=== PATIENT | male | born 1960 | race Caucasian/White ===

== ENCOUNTER 2020-03-25 11:48 | Emergency (ER) | payer SELFPAY ==
[~2020-03-25] VITALS: Ht 172 cm; Wt 58.0 kg
[2020-03-25 12:20] VITALS: BP 159/103
[2020-03-25] MEDS ORDERED: CEPH-507 PO (12:39)
--- NOTE | 2020-03-25 12:40 | ED Upper Extremity ---
General Chief Complaint: Upper Extremity Stated Complaint: STAFF INFECTION Nursing Triage Note: PATIENT STATES NOTICED LEFT ELBOW NOTICED SWELLING 24 HOURS AGO. Nursing Sepsis Screen: No Definite Risk Source: patient Exam Limitations: no limitations History of Present Illness Date Seen by Provider: Mar 25, 2020 Time Seen by Provider: 12:34 Initial Comments Patient is a 59-year-old male who presents to the emergency room with a chief complaint of left elbow swelling and red rash. Patient states the rash started a couple of days ago. 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 He states the elbow does not hurt but he has noticed that its been swelling. He denies fevers or chills but states that the swelling has extended into his forearm and a little bit up his upper arm. No difficulties with range of motion. Patient denies any other complaints of illness or injury. All other review of systems reviewed and negative except as stated. Onset: last week Severity: mild Pain/Injury Location: left elbow, left forearm Allergies and Home Medications Allergies Coded Allergies: No Known Drug Allergies (Unverified , 11/18/11) Patient Home Medication List Home Medication List Reviewed: Yes Review of Systems Constitutional: see HPI EENTM: no symptoms reported Respiratory: cough (Chronic) Cardiovascular: no symptoms reported Gastrointestinal: no symptoms reported Genitourinary: no symptoms reported Musculoskeletal: no symptoms reported Skin: change in color, other (Swelling over left elbow) All Other Systems Reviewed Negative Unless Noted: Yes Past Vtobtzc-Jrqykv-Ryjgmj Hx Patient Social History Recent Foreign Travel: No Contact w/Someone Who Travel: No Recent Infectious Disease Expo: No Physical Exam Vital Signs Vital Signs - First Documented 03/25/20 12:20 Temp 37.0 Pulse 120 Resp 20 B/P (MAP) 159/103 (121) Pulse Ox 97 O2 Delivery Room Air Capillary Refill : Less Than 3 Seconds Height, Weight, BMI Height: '" Weight: lbs. oz. kg; 19.00 BMI Method:Stated General Appearance: WD/WN, no apparent distress Cardiovascular: regular rate, rhythm Respiratory: lungs clear, normal breath sounds, no respiratory distress Gastrointestinal: soft Elbow/Forearm: normal ROM, Left, swelling (Swelling over the olecranon bursa with some erythema that extends over the bursa and into the dorsum of the fo rearm; no crepitance noted no tenderness to palpation) Wrist: Yes normal inspection, Yes non-tender, Yes no evidence of injury, Yes normal ROM Hand: normal inspection, non-tender, no evidence of injury, normal ROM Neurologic/Psychiatric: alert, normal mood/affect, oriented x 3 Skin: normal color, warm/dry Progress/Results/Core Measures Results/Orders Vital Signs/I&O 03/25/20 12:20 Temp 37.0 Pulse 120 Resp 20 B/P (MAP) 159/103 (121) Pulse Ox 97 O2 Delivery Room Air Blood Pressure Mean: 121 Departure Impression Primary Impression: Olecranon bursitis of left elbow Disposition: HOME, SELF-CARE Condition: Stable Departure-Patient Inst. Decision time for Depature: 12:37 Referrals: FRANCES PORTILLO MD (PCP/Family) Primary Care Physician Patient Instructions: Olecranon Bursitis Add. Discharge Instructions: Take the antibiotics I have prescribed you 3 times a day for the next week. You can use Tylenol or gupi-tzc-tqduwnq ibuprofen as needed for discomfort. If the redness continues to expand after 24 to 48 hours on the antibiotics, if you develop fever, or any other emergent concerning symptoms please return to the emergency room for reevaluation. Scripts Cephalexin (Keflex) 500 Mg Capsule 500 MG PO TID for 7 Days, #21 CAP Prov: MICHOACANO MENA MD 03/25/20 MICHOACANO MENA MD Mar 25, 2020 12:40
== END 2020-03-25 12:51 | disposition home or self-care (01) ==
LOC: EDUNIT# 11:48 → ER 11:50
DX: M70.22 Olecranon bursitis, left elbow (principal); X58.XXXA Exposure to other specified factors, initial encounter
CPT/HCPCS: 99282

== ENCOUNTER 2022-06-02 08:30 | Emergency (ER) | payer SELFPAY ==
[~2022-06-02] VITALS: Ht 172.7 cm; Wt 63.5 kg
[~2022-06-02 08:30] MED LIST: CEPH-507 PO
--- NOTE | 2022-06-02 09:01 | ED Neurological Problem ---
General Chief Complaint: Head/Cervical Problems Stated Complaint: HEADACHES DIZZINESS Source: patient Exam Limitations: no limitations History of Present Illness Date Seen by Provider: Jun 02, 2022 Time Seen by Provider: 08:42 Initial Comments Patient is a 62-year-old male who presents to the emergency room today with a chief complaint of occipital headache and feelings of dizziness. Patient states the symptoms have been going on for about 3 weeks. He states last night he was at the grocery store and it was at its worst. He was having to hold onto the shopping cart to keep from falling down. 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 He states when he looks up he has the worst feelings of dizziness. The dizziness and headaches can occur anytime of day and occasionally he feels his heartbeat in his ears. Occasionally it feels like he is "underwater". He takes 800 mg of ibuprofen sometimes 2-3 times daily for his headaches. Minimal relief of symptoms. He did have a fall about a month ago and "blew my back out". He has been going to chiropractor and having deep tissue massages. He states his back pain is a chronic problem however. He takes no daily medications, does not routinely go to the doctor. Cannot recall the last time he had any type of general medical exam. History of smoking for approximately "50 years". He states normally 2 packs a day but has been able to wean himself down to 1 pack a day recently. He did visit urgent care approximately 1 week ago. He states they told him he was dehydrated, he has been drinking 1 L of water daily and states that has helped his dizziness "a little". He states they did not do much of exam and exam, they did not look in his ears or watch him walk. Currently mild headache. No nausea. No other complaints of illness. Timing/Duration: other (3 weeks) Severity: moderate Associated Symptoms: trouble walking, weakness (feels a little weak "no energy") Allergies and Home Medications Allergies Coded Allergies: No Known Drug Allergies (Unverified , 11/18/11) Patient Home Medication List Home Medication List Reviewed: Yes Cephalexin (Keflex) 500 Mg Capsule, 500 MG PO TID Prescribed by: MICHOACANO MENA on 03/25/20 1239 Review of Systems Review of Systems Constitutional: see HPI, malaise Eyes: No Symptoms Reported Ears, Nose, Mouth, Throat: see HPI Respiratory: no symptoms reported Cardiovascular: no symptoms reported Gastrointestinal: no symptoms reported Genitourinary: no symptoms reported Musculoskeletal: back pain (chronic) Skin: no symptoms reported Psychiatric/Neurological: Headache, Other (balance and coordination issues) All Other Systems Reviewed Negative Unless Noted: Yes Past Bkaxqpz-Mbchnr-Bxmwas Hx Patient Social History Tobacco Use?: Yes Tobacco type used: Cigarettes Smoking Status: Current Everyday Smoker Use of E-Cig and/or Vaping dev: No Substance use?: Yes Substance type: Marijuana Substance frequency: Daily Alcohol Use?: Yes Alcohol Frequency: Couple times a week Pt feels they are or have been: No Immunizations Up To Date Influenza Vaccine Up-to-Date: No; Not Current First/Initial COVID19 Vaccinat: NONE Past Medical History Surgery/Hospitalization HX: FAMILY HX OF STROKE Physical Exam Vital Signs Vital Signs - First Documented 06/02/22 08:36 Temp 36.4 Pulse 104 Resp 18 B/P (MAP) 164/90 (114) Pulse Ox 98 O2 Delivery Room Air Capillary Refill : Height, Weight, BMI Height: '" Weight: lbs. oz. kg; 19.00 BMI Method:Stated General Appearance: no apparent distress, thin HEENT: PERRL/EOMI, other (palate appears to elevate assymmetrically; tongue is midline; TM's occluded by cerumen bilaterally) Neck: non-tender, full range of motion, supple, normal inspection Respiratory: expiration (exp wheezes bilaterally (mild)) Cardiovascular: regular rate, rhythm Peripheral Pulses: 2+ Radial Pulses (R), 2+ Radial Pulses (L) Gastrointestinal: normal bowel sounds, non tender, soft Extremities: normal range of motion, non-tender, normal inspection, no pedal edema, no calf tenderness, normal capillary refill Neurologic/Psychiatric: alert, normal mood/affect, oriented x 3, abnormal gait (slightly wide based initially, but patient coreects; able to do 3 steps heel to toe; able to stand on tip toes) Crainal Nerves: normal hearing, normal speech, PERRL; No abnormal eye position, No abnormal gag reflex, No abnormal pupil position, No facial asymmetry, No facial droop, No facial paresthesias, No facial weakness, No gaze palsy, No tongue deviation to R, No tongue deviation to L Coordination/Gait: other (past points with both hands briefly but corrects, no persistent abnormality) Motor/Sensory: no sensory deficit, no pronator drift Skin: normal color, warm/dry, other (clubbing to fingertips) Progress/Results/Core Measures Results/Orders Lab Results Laboratory Tests Test 06/02/22 09:00 Range/Units White Blood Count 8.2 4.3-11.0 10^3/uL Red Blood Count 4.34 4.30-5.52 10^6/uL Hemoglobin 14.3 13.3-17.7 g/dL Hematocrit 42 40-54 % Mean Corpuscular Volume 96 80-99 fL Mean Corpuscular Hemoglobin 33 25-34 pg Mean Corpuscular Hemoglobin Concent 34 32-36 g/dL Red Cell Distribution Width 12.7 10.0-14.5 % Platelet Count 270 130-400 10^3/uL Mean Platelet Volume 9.6 9.0-12.2 fL Immature Granulocyte % (Auto) 1 % Neutrophils (%) (Auto) 53 42-75 % Lymphocytes (%) (Auto) 30 12-44 % Monocytes (%) (Auto) 14 H 0-12 % Eosinophils (%) (Auto) 2 0-10 % Basophils (%) (Auto) 0 0-10 % Neutrophils # (Auto) 4.4 1.8-7.8 10^3/uL Lymphocytes # (Auto) 2.4 1.0-4.0 10^3/uL Monocytes # (Auto) 1.2 H 0.0-1.0 10^3/uL Eosinophils # (Auto) 0.2 0.0-0.3 10^3/uL Basophils # (Auto) 0.0 0.0-0.1 10^3/uL Immature Granulocyte # (Auto) 0.1 0.0-0.1 10^3/uL Prothrombin Time 12.2 12.2-14.7 SEC INR Comment 0.9 0.8-1.4 Activated Partial Thromboplast Time 29 24-35 SEC Sodium Level 139 135-145 MMOL/L Potassium Level 4.0 3.6-5.0 MMOL/L Chloride Level 101 98-107 MMOL/L Carbon Dioxide Level 26 21-32 MMOL/L Anion Gap 12 5-14 MMOL/L Blood Urea Nitrogen 12 7-18 MG/DL Creatinine 0.77 0.60-1.30 MG/DL Estimat Glomerular Filtration Rate 102 BUN/Creatinine Ratio 16 Glucose Level 111 H 70-105 MG/DL Calcium Level 9.7 8.5-10.1 MG/DL Corrected Calcium 9.6 8.5-10.1 MG/DL Total Bilirubin 0.3 0.1-1.0 MG/DL Aspartate Amino Transf (AST/SGOT) 16 5-34 U/L Alanine Aminotransferase (ALT/SGPT) 17 0-55 U/L Alkaline Phosphatase 73 40-136 U/L Total Protein 7.1 6.4-8.2 GM/DL Albumin 4.1 3.2-4.5 GM/DL My Orders Orders - MICHOACANO MENA MD Ed Iv/Invasive Line Start (06/02/22 09:01) Cbc With Automated Diff (06/02/22 09:01) Comprehensive Metabolic Panel (06/02/22 09:01) Protime With Inr (06/02/22 09:01) Partial Thromboplastin Time (06/02/22 09:01) Chest 1 View, Ap/Pa Only (06/02/22 09:01) Ns Iv 1000 Ml (Sodium Chloride 0.9%) (06/02/22 09:45) Ct Head W Wo (06/02/22 09:38) Iohexol Injection (Omnipaque 350 Mg/Ml 1 (06/02/22 10:00) Received Contrast (Hold Metformin- Contr (06/02/22 10:00) Ns (Ivpb) (Sodium Chloride 0.9% Ivpb Bag (06/02/22 10:00) Medications Given in ED Vital Signs/I&O 06/02/22 06/02/22 06/02/22 08:36 08:36 12:40 Temp 36.4 Pulse 104 78 Resp 18 18 B/P (MAP) 164/90 (114) 137/87 Pulse Ox 98 97 O2 Delivery Room Air Room Air Progress Progress Note : Time: 10:59 Progress Note Patient seen and evaluated by me. Evaluation today includes physical exam, CBC, Chem-12, coags, chest x-ray and CT head with and without contrast. Pertinent physical exam findings, well-developed well-nourished 62-year-old male in no acute distress, thin. Slightly dry oral mucosa, HEENT exam otherwise negative. Heart is regular, lungs are clear, no abdominal tenderness. Moves all extremities equally. Neurologic testing shows slightly ataxic gait/wide-based that the patient corrects. He is able to walk 3 steps only on heel-to-toe walking. Negative pronator drift, pylubh-hv-cfbm is pertinent for past-pointing bilaterally but the patient corrects this. No nystagmus, extraocular muscles are intact. Palate actually looks to elevate asymmetrically. He has no obvious cranial nerve deficits. Motor and sensory strength are intact throughout. Differential diagnosis cerebellar stroke/mass. After work-up was obtained, labs reviewed, CBC normal, Chem-12 normal, coags no rmal. Radiologist read chest x-ray and noted some right hilar fullness cannot exclude mass. Otherwise hyperinflated consistent with COPD changes. CT head with and without contrast showed right cerebellar mass measuring 1.5 cm with surrounding vasogenic edema and shift of about 5 mm. He had 2 other masses noted laterally in the cerebellum on both the right and left. Findings were communicated with the patient. I expressed to him the need for further work-up and treatment of the mass with swelling as it is limiting his activities of daily living. I spoke with Dr. Tommy Parsons at [facility], neurosurgery who it was agreeable that the patient needed to come over for further evaluation management and treatment. We will speak with Dr. Magdaleno, the hospitalist on-call for acceptance. Diagnostic Imaging Diagonstic Imaging: Xray Plain Films/CT/US/NM/MRI: chest Comments [facility] [place], [place] NAME: GERA WAGNER [facility] REC#: [id number] PT STATUS: REG ER : 1960 PHYSICIAN: MICHOACANO MENA MD ADMIT DATE: 06/02/22/ER Draft Date of Exam:06/02/22 CHEST 1 VIEW, AP/PA ONLY INDICATION: Headache and dizziness. FINDINGS: The diaphragms are flattened and there are prominent interstitial markings suggesting underlying COPD. There is prominence of the right hilum. This may reflect a prominent pulmonary artery but given the apparent COPD risk factors consider CT of the chest. There is no superimposed pneumonia. There is no effusion or pneumothorax. There is no suspicious osseous abnormality. IMPRESSION: 1. Background features of apparent COPD with pulmonary hyperinflation and diaphragmatic flattening. 2. Asymmetric prominence of the right hilum. While this may reflect a prominent pulmonary artery, consider CT examination to exclude adenopathy or a juxta hilar mass. Dictated on workstation # [id number] Dict: 06/02/22 0925 Trans: 06/02/22929 CV [id number] Interpreted by: WILLIS CONTRERAS MD Electronically signed by: Hanh Imaging: CT Comments [facility] [place] [place] NAME: GERA WAGNER [facility] REC#: [id number] PT STATUS: REG ER : 1960 PHYSICIAN: MICHOACANO MENA MD ADMIT DATE: 06/02/22/ER Draft Date of Exam:06/02/22 CT HEAD W WO PROCEDURE: CT head with and without contrast. TECHNIQUE: Multiple contiguous axial images were obtained through the brain before and after the administration of intravenous contrast. Auto Exposure Controls were utilized during the CT exam to meet ALARA standards for radiation dose reduction. INDICATION: Headache. Unsteady gait. Balance and coordination problems. COMPARISON: None. FINDINGS: Hyperattenuating mass in the right cerebellum measures approximately 1.4 x 1.5 cm and enhances on the postcontrast imaging. There are also enhancing masses more laterally in the cerebellum, measuring up to 0.5 cm on the right and 0.3 cm on the left. Vasogenic edema in the right cerebellum results in midline shift of approximately 0.5 cm and mass effect upon the 4th ventricle. No hydrocephalus. No CT evidence of a territorial infarction. No extra-axial fluid collections. Mucosal thickening in the maxillary sinuses. The mastoids are clear. Osseous structures are intact. IMPRESSION: Multiple enhancing masses in the cerebellum, the largest on the right measuring up to 1.5 cm. This results in some midline shift and mild mass effect along the 4th ventricle without hydrocephalus. Dictated on workstation # [id number] Dict: 06/02/22 1026 Trans: 06/02/22 1033 CV [id number] Interpreted by: IMAN JUNE MD Electronically signed by: Departure Impression Primary Impression: Cerebellar tumor Disposition: 02 XFER SHT-TRM HOSP Condition: Stable (ERASED) Transfer Transfer Reason: Exceeds level of care Time Spoke to Accepting Phy: 11:30 Transfer Progress Notes Discussed with Dr Tommy Parsons, Neurosurgery; Discussed with Dr Magdaleno (Hospitalist) who accepts patient as direct admit Transfer Time: 12:45 Transfer Facility: [facility] Method of Transfer: Private Vehicle Departure-Patient Inst. Referrals: FRANCES PORTILLO MD (PCP/Family) Primary Care Physician MICHOACANO MENA MD Jun 02, 2022 09:01
[2022-06-02 09:10] LABS: BASOPHILS % (AUTO) 0 % (0-10); EOSINOPHILS # (AUTO) 0.2 10^3/uL (0.0-0.3); EOSINOPHILS % (AUTO) 2 % (0-10); HEMATOCRIT 42 % (40-54); HEMOGLOBIN 14.3 g/dL (13.3-17.7); LYMPHOCYTES # (AUTO) 2.4 10^3/uL (1.0-4.0); LYMPHOCYTES % (AUTO) 30 % (12-44); MEAN CORPUSCULAR HEMOGLOBIN 33 pg (25-34); MEAN CORPUSCULAR HGB CONC 34 g/dL (32-36); MEAN CORPUSCULAR VOLUME 96 fL (80-99); MEAN PLATELET VOLUME 9.6 fL (9.0-12.2); MONOCYTES # (AUTO) 1.2 10^3/uL (0.0-1.0); MONOCYTES % (AUTO) 14 % (0-12); NEUTROPHILS # (AUTO) 4.4 10^3/uL (1.8-7.8); NEUTROPHILS % (AUTO) 53 % (42-75); PLATELET COUNT 270 10^3/uL (130-400); WHITE BLOOD COUNT 8.2 10^3/uL (4.3-11.0)
[2022-06-02 09:21] LABS: ALBUMIN 4.1 GM/DL (3.2-4.5)
[2022-06-02 09:22] LABS: CALCIUM 9.7 MG/DL (8.5-10.1)
[2022-06-02 09:23] LABS: INR 0.9 (0.8-1.4); PROTHROMBIN TIME PATIENT 12.2 SEC (12.2-14.7); TOTAL PROTEIN 7.1 GM/DL (6.4-8.2)
[2022-06-02 09:25] LABS: BILIRUBIN,TOTAL 0.3 MG/DL (0.1-1.0)
[2022-06-02 09:27] LABS: CREATININE SERUM 0.77 MG/DL (0.60-1.30)
--- NOTE | 2022-06-02 09:31 | Diagnostic Imaging Report ---
INDICATION: Headache and dizziness. FINDINGS: The diaphragms are flattened and there are prominent interstitial markings suggesting underlying COPD. There is prominence of the right hilum. This may reflect a prominent pulmonary artery but given the apparent COPD risk factors consider CT of the chest. There is no superimposed pneumonia. There is no effusion or pneumothorax. There is no suspicious osseous abnormality. IMPRESSION: 1. Background features of apparent COPD with pulmonary hyperinflation and diaphragmatic flattening. 2. Asymmetric prominence of the right hilum. While this may reflect a prominent pulmonary artery, consider CT examination to exclude adenopathy or a juxta hilar mass. Dictated by: Dictated on workstation # [id number]
[2022-06-02] MEDS ORDERED: NS IV 1000 ML 1,000 ML IV SCH (09:45)
[2022-06-02] MEDS ORDERED: IOHEXOL 350 MG/ML 100 ML (OMNIPAQUE 350) VIAL IV ONE (10:00)
[2022-06-02] MEDS ORDERED: HOLD METFORMIN - RECEIVED CONTRAST 20 ML VIAL IV SCH (10:00)
[2022-06-02] MEDS ORDERED: NS 100 ML (IVPB) BAG IV ONE (10:00)
--- NOTE | 2022-06-02 10:35 | Diagnostic Imaging Report ---
PROCEDURE: CT head with and without contrast. TECHNIQUE: Multiple contiguous axial images were obtained through the brain before and after the administration of intravenous contrast. Auto Exposure Controls were utilized during the CT exam to meet ALARA standards for radiation dose reduction. INDICATION: Headache. Unsteady gait. Balance and coordination problems. COMPARISON: None. FINDINGS: Hyperattenuating mass in the right cerebellum measures approximately 1.4 x 1.5 cm and enhances on the postcontrast imaging. There are also enhancing masses more laterally in the cerebellum, measuring up to 0.5 cm on the right and 0.3 cm on the left. Vasogenic edema in the right cerebellum results in midline shift of approximately 0.5 cm and mass effect upon the 4th ventricle. No hydrocephalus. No CT evidence of a territorial infarction. No extra-axial fluid collections. Mucosal thickening in the maxillary sinuses. The mastoids are clear. Osseous structures are intact. IMPRESSION: Multiple enhancing masses in the cerebellum, the largest on the right measuring up to 1.5 cm. This results in some midline shift and mild mass effect along the 4th ventricle without hydrocephalus. Dictated by: Dictated on workstation # [id number]
[2022-06-02 12:40] VITALS: BP 137/87
== END 2022-06-02 12:39 | disposition short-term general hospital (02) ==
LOC: EDUNIT# 08:30 → ER 08:34
DX: D49.6 Neoplasm of unspecified behavior of brain (principal); R68.2 Dry mouth, unspecified; F17.210 Nicotine dependence, cigarettes, uncomplicated; Z28.310 Unvaccinated for COVID-19
CPT/HCPCS: 36415; 70470; 71045; 80053; 85025; 85610; 85730

== ENCOUNTER 2022-11-27 21:02 | Emergency (ER) | payer SELFPAY ==
--- NOTE | 2022-11-27 21:38 | ED Trauma-Multisystem ---
General Chief Complaint: Trauma-Non Activation Stated Complaint: FALL/LEFT CERDA LAC/NOSE INJURY Nursing Triage Note: PT AMB TO ED BY POV WITH C/O FALL FROM LADDER. PT REPORTS HE WAS STANDING ON THE NEXT TO TOP WRUNG ON 6 FT LADDER WHEN HE FELL. LAC NOTED TO L LEG AND NOSE. PT REPORTS HE HIT HIS FACE ON THE LADDER , REPORTS PAIN IN NOSE. DENIES LOC. A&OX4. Source of Information: Patient History of Present Illness Date Seen by Provider: Nov 27, 2022 Time Seen by Provider: 21:25 Allergies and Home Medications Allergies Coded Allergies: No Known Drug Allergies (Unverified , 11/18/11) Patient Home Medication List Cephalexin (Keflex) 500 Mg Capsule, 500 MG PO TID Prescribed by: MICHOACANO MENA on 03/25/20 1239 Past Vlnhpgf-Uqyazh-Emdoti Hx Patient Social History Tobacco Use?: Yes Tobacco type used: Cigarettes Smoking Status: Current Everyday Smoker Use of E-Cig and/or Vaping dev: No Substance use?: Yes Substance type: Marijuana Substance frequency: Daily Alcohol Use?: Yes Alcohol Frequency: Couple times a week Pt feels they are or have been: No Immunizations Up To Date Influenza Vaccine Up-to-Date: No; Not Current First/Initial COVID19 Vaccinat: NONE Second COVID19 Vaccination Jose: NONE Third COVID19 Vaccination Date: NONE Past Medical History Surgery/Hospitalization HX: BRAIN AND LUNG CA Physical Exam Vital Signs Vital Signs - First Documented 11/27/22 21:20 Temp 36.6 Pulse 102 Resp 15 B/P (MAP) 155/99 (117) Pulse Ox 100 O2 Delivery Room Air Height, Weight, BMI Height: '" Weight: lbs. oz. kg; BMI Method:Stated Progress/Results/Core Measures Results/Orders My Orders Orders - BRI TORRES DO Dipht/Pertuss(Acell)/Tet Adult (Dipht/Pe (11/27/22 21:45) Lidocaine 1% Inj 20 Ml (Xylocaine 1% Inj (11/27/22 21:45) Wound Dressing-Ed (11/27/22 21:35) Lidocaine 1% Inj 10 Ml (Xylocaine 1% Inj (11/27/22 21:40) Amoxicillin/Clavulanate Tablet (Amoxicil (11/27/22 22:00) Vital Signs/I&O 11/27/22 21:20 Temp 36.6 Pulse 102 Resp 15 B/P (MAP) 155/99 (117) Pulse Ox 100 O2 Delivery Room Air Blood Pressure Mean: 117 Progress Progress Note : Progress Note PT ADAMANTLY REFUSES CERVICAL COLLAR, ANd REFUSES ALL XRAYS AND CT SCANS DEMANDS THAT HE JUST HAVE HIS LEG SEWN UP AND DOES NOT WANT ANYTHING ELSE DONE Departure Impression Primary Impression: FALL OFF LADDER Additional Impressions: Injury of intraoral region Closed head injury without loss of consciousness Laceration of nose Laceration of left lower leg Tejnbsgsja-skgehcjvz-sqbzntf (DPT) vaccination administered at current visit Disposition: HOME, SELF-CARE Condition: Stable Departure-Patient Inst. Decision time for Depature: 21:55 Referrals: [facility] Patient Instructions: General Trauma (DC), Head Injury in Adults (DC), Laceration Repair With [facility] ED, Tdap (Tetanus, Diphtheria, Pertussis) Vaccine CDC Vaccine Information Statement (VIS), Wound Care ED Add. Discharge Instructions: CLEAN WOUNDS TWICE A DAY WITH ANTIBACTERIAL SOAP AND WATER, APPLY ANTIBIOTIC OINTMENT TO OPEN WOUNDS OF FACE, AND FRESH DRESSING TO LEG WOUNDS TYLENOL AND MOTRIN NEEDED FOR PAIN [facility]I OUT IN 10-14 DAYS--RETURN TO ER FOR REMOVAL FOLLOW UP WITH [facility] IN 2-3 DAYS FOR WOUND CHECK RETURN TO ER IF SYMPTOMS WORSEN All discharge instructions reviewed with patient and/or family. Voiced understanding. Scripts Amoxicillin/Potassium Clav (Amox Tr-K Clv 875-125 mg Tab) 875 Mg-125 Mg Tablet 1 EACH PO BID for 15 Days, #30 TAB Prov: BRI TORRES DO 11/27/22 BRI TORRES DO Nov 27, 2022 21:38
[2022-11-27] MEDS ORDERED: LIDOCAINE 1% INJ 10 ML VIAL ONE (21:40)
[2022-11-27] MEDS ORDERED: LIDOCAINE 1% INJ 20 ML VIAL IJ ONE (21:45)
[2022-11-27] MEDS ORDERED: Tetanus/Diphtheria/Pertussis (Acell) ADULT Vaccine 0.5 ML IM ONE ×2 (21:45→22:26)
[2022-11-27] MEDS ORDERED: AMOX1TAB12 PO (21:59)
[2022-11-27] MEDS ORDERED: AMOXICILLIN/Clavulanate 875 MG TABLET PO SCH (22:00)
[2022-11-27 23:12] VITALS: BP 147/85
== END 2022-11-27 23:12 | disposition home or self-care (01) ==
LOC: EDUNIT# 21:02 → ER 21:05
DX: S09.90XA Unspecified injury of head, initial encounter (principal); S01.21XA Laceration without foreign body of nose, initial encounter; S81.812A Laceration without foreign body, left lower leg, initial encounter; S09.93XA Unspecified injury of face, initial encounter; F17.210 Nicotine dependence, cigarettes, uncomplicated; Z23 Encounter for immunization; Z28.310 Unvaccinated for COVID-19; W11.XXXA Fall on and from ladder, initial encounter
CPT/HCPCS: 12032; 90715

== ENCOUNTER 2022-12-09 11:55 | Emergency (ER) | payer MEDICAID ==
[~2022-12-09] VITALS: Ht 173 cm; Wt 59.9 kg
[~2022-12-09 11:55] MED LIST changes: +AMOX1TAB12 PO
[2022-12-09 12:03] VITALS: BP 137/86
[2022-12-20] MEDS ORDERED: DOXY100C5 PO (15:34)
[2023-01-06] MEDS ORDERED: SULF1TAB38 PO (15:14)
== END 2022-12-09 12:12 | disposition home or self-care (01) ==
LOC: EDUNIT# 11:55 → ER 11:57
DX: Z48.02 Encounter for removal of sutures (principal); Z28.310 Unvaccinated for COVID-19

== ENCOUNTER 2022-12-12 13:32 | Emergency (ER) | payer SELFPAY ==
[~2022-12-12] VITALS: Ht 170 cm; Wt 62.0 kg
[2022-12-12] MEDS ORDERED: CEPH500T PO (13:59)
--- NOTE | 2022-12-12 14:00 | ED Integumentary General ---
"General Chief Complaint: Skin/Wound Problems Stated Complaint: LT ABRAHAM LACERATION | POST SUDEEP 11/28/2022 Source: patient Exam Limitations: no limitations (MAURA IBARRA) History of Present Illness Date Seen by Provider: Dec 12, 2022 Time Seen by Provider: 13:57 Initial Comments Patient is a 62-year-old male with a history of cancer presents ED for wound dehiscence to his left lower leg. Patient states that he had sudeep removed on the . Last night a broom nicked his leg caused it to open up about a centimeter. Reports some mild bloody drainage but no pus. Denies of any specific pain. Patient denies diabetes. Denies distal numbness and tingling fever, chills. Patient is concerned that this may develop infection. Patient denies history of MRSA. (MAURA IBARRA) Allergies and Home Medications Allergies Coded Allergies: No Known Drug Allergies (Unverified , 11/18/11) Patient Home Medication List Home Medication List Reviewed: Yes (MAURA IBARRA) Amoxicillin/Potassium Clav (Amox Tr-K Clv 875-125 mg Tab) 875 Mg-125 Mg Tablet, 1 EACH PO BID Prescribed by: BRI TORRES on 11/27/22 2159 Cephalexin (Keflex) 500 Mg Capsule, 500 MG PO TID Prescribed by: MICHOACANO MENA on 03/25/20 1239 Cephalexin (Cephalexin) 500 Mg Tablet, 500 MG PO QID Prescribed by: WARNER PAZ on 12/12/22 1359 Review of Systems Review of Systems Constitutional: No chills, No diaphoresis, No malaise, No weakness EENTM: No ear pain, No blurred vision, No double vision Gastrointestinal: No abdominal pain, No diarrhea, No nausea, No vomiting Genitourinary: No decreased output, No discharge Musculoskeletal: No back pain, No joint pain; muscle pain Skin: change in color Psychiatric/Neurological: Denies Anxiety, Denies Depressed (MAURA IBARRA) All Other Systems Reviewed Negative Unless Noted: Yes (MAURA IBARRA) Past Rurpqdd-Aeuocy-Clbagv Hx Patient Social History Tobacco Use?: Yes Substance use?: Yes Substance type: Marijuana Alcohol Use?: Yes (MAURA IBARRA) Immunizations Up To Date First/Initial COVID19 Vaccinat: NONE Second COVID19 Vaccination Jose: NONE Third COVID19 Vaccination Date: NONE (MAURA IBARRA) Past Medical History Surgery/Hospitalization HX: BRAIN AND LUNG CA (MAURA IBARRA) Physical Exam Vital Signs Vital Signs - First Documented 12/12/22 13:52 Temp 36.8 Pulse 113 Resp 18 B/P (MAP) 167/87 (113) Pulse Ox 95 (DANIEL SARMIENTO MD) Vital Signs Capillary Refill : (MAURA IBARRA) General Appearance: WD/WN, no apparent distress HEENT: PERRL/EOMI, normal ENT inspection, TMs normal, pharynx normal Neck: non-tender, full range of motion, supple Cardiovascular: regular rate, rhythm, no edema, no gallop, no JVD Respiratory: chest non-tender, lungs clear, normal breath sounds, no respiratory distress, no accessory muscle use Gastrointestinal: normal bowel sounds, non tender, soft, no organomegaly Back: normal inspection, no CVA tenderness Extremities: normal range of motion, non-tender, normal inspection, no pedal edema Neurologic/Psychiatric: 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 Wound appears clean) (MAURA IBARRA) Progress/Results/Core Measures Results/Orders Vital Signs/I&O 12/12/22 12/12/22 13:52 14:20 Temp 36.8 Pulse 113 105 Resp 18 18 B/P (MAP) 167/87 (113) 138/76 Pulse Ox 95 94 (DANIEL SARMIENTO MD) Departure Communication (PCP) Exam of the left leg shows 1 cm area of wound dehiscence. Appears to be superficial. No fluctuant mass or tenderness on palpation suggesting abscess or infection. No surrounding redness. Irrigated with normal saline and Shur cleans. Applied a Steri-Strip loosely to continue the area to drain. Will discharge Keflex prophylactically. History of cancer. If increased redness or swelling to return back to ED. Topical Neosporin twice a day. (MAURA IBARRA) Impression Primary Impression: Wound dehiscence Disposition: 01 HOME, SELF-CARE Condition: Stable Departure-Patient Inst. Decision time for Depature: 13:59 (MAURA IBARRA) Referrals: [facility] (PCP/Family) Primary Care Physician Patient Instructions: Wound Dehiscence (DC) Add. Discharge Instructions: Continue monitoring. Topical Neosporin twice a day. Keep the wound clean All discharge instructions reviewed with patient and/or family. Voiced understanding. Scripts Cephalexin (Cephalexin) 500 Mg Tablet 500 MG PO QID for 7 Days, #28 TAB Prov: MAURA IBARRA 12/12/22 ATTENDING PHYSICIAN NOTE: I was physically present as attending physician in the emergency department during the care of this patient, but I was not directly involved in the decision making or delivery of care for this patient. (DANIEL SARMIENTO MD) MAURA IBARRA Dec 12, 2022 13:59 DANIEL SARMIENTO MD Dec 13, 2022 15:53"
[2022-12-12 14:20] VITALS: BP 138/76
== END 2022-12-12 14:20 | disposition home or self-care (01) ==
LOC: EDUNIT# 13:32 → ER 13:34
DX: T81.33XA Disruption of traumatic injury wound repair, initial encounter (principal); Z28.310 Unvaccinated for COVID-19
CPT/HCPCS: 99281

== ENCOUNTER → 2022-12-26 | Outpatient (CLI) | payer MEDICAID ==
[~2022-12-26] MED LIST changes: +CEPH500T PO; +DOXY100C5 PO
== END ==
LOC: WOUNDCARE 08:09
PROVIDERS: ATTEND Family Medicine
DX: T81.31XA Disruption of external operation (surgical) wound, not elsewhere classified, initial encounter (principal); S61.121A Laceration with foreign body of right thumb with damage to nail, initial encounter; D64.81 Anemia due to antineoplastic chemotherapy; Z92.21 Personal history of antineoplastic chemotherapy; Z92.25 Personal history of immunosuppression therapy; F17.218 Nicotine dependence, cigarettes, with other nicotine-induced disorders; F10.20 Alcohol dependence, uncomplicated; A49.9 Bacterial infection, unspecified
CPT/HCPCS: 11042; 82607; 82728; 82746; 83540; 83550; 84134; 85652; 86141; G0463; 36415

== ENCOUNTER → 2022-12-28 | Outpatient (CLI) | payer MEDICAID ==
[~2022-12-28] MED LIST changes: +SULF1TAB38 PO
--- NOTE | 2022-12-31 08:38 | Diagnostic Imaging Report ---
INDICATION: The patient complains of right hip pain and has history of metastatic lung cancer to the right upper lobe. The patient also had a fall with right chest pain after that injury. COMPARISON: No relevant comparison. TECHNIQUE: The patient received 27.2 mCi of technetium 99M MDP with post injection 3 hour whole-body planar acquisitions performed. FINDINGS: There is focal and intense punctate elevated uptake involving the distal tips of the right 9th, 10th, and 11th ribs. Given the history, this is presumed on a post traumatic basis. No suspicious rib, sternal, or manubrial uptake. There are arthritic changes about the long bone joints. No suspicious or asymmetric pelvic uptake. The spine is unremarkable. The soft tissue uptake and excretion appear unremarkable. IMPRESSION: 1. No findings felt suggestive of metastatic disease. 2. The findings are most compatible with subacute distal right lower rib fractures as described. Dictated by: Dictated on workstation # [id number]
== END ==
LOC: CARD 09:43
PROVIDERS: ATTEND Nurse Practitioner Adult Health
DX: C34.11 Malignant neoplasm of upper lobe, right bronchus or lung (principal); C79.31 Secondary malignant neoplasm of brain
CPT/HCPCS: 78306; A9503

== ENCOUNTER → 2023-01-01 | Outpatient (CLI) | payer MEDICAID ==
[~2023-01-01] MED LIST changes: +GADOTERATE 0.5 MMOL/ML (CLARISCAN) 15 ML VIAL IV ONE; -SULF1TAB38 PO
--- NOTE | 2023-01-01 10:11 | Diagnostic Imaging Report ---
PROCEDURE: MRI left lower extremity with and without contrast. TECHNIQUE: Multiplanar, multisequence pre and post contrast-enhanced MRI of the left lower extremity was accomplished. INDICATION: Nonhealing ulcer in the left lower leg. COMPARISON: None available. FINDINGS: Skin marker was placed on the anterior aspect of the proximal lower leg to demarcate the site of concern. At this region there is a small dermal ulcer overlying the anterior aspect of the tibia. There is a shallow base to the ulcer terminating within the subcutaneous fat. No loculated fluid collection is present to indicate a drainable abscess. There is surrounding subcutaneous non-masslike enhancement likely due to cellulitis. No marrow changes within the underlying tibia to indicate osteomyelitis. 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 No knee joint effusion. IMPRESSION: 1. Small dermal ulcer in the anterior aspect of the proximal lower leg has no underlying abscess or osteomyelitis. 2. Incidental note is made of multifocal bone infarcts around the knee. Correlation for risk factors such as chronic corticosteroid use, alcohol abuse or clotting disorders. Dictated by: Dictated on workstation # [id number]
== END ==
LOC: RAD 08:00
PROVIDERS: ATTEND Family Medicine
DX: T81.31XA Disruption of external operation (surgical) wound, not elsewhere classified, initial encounter (principal); L97.229 Non-pressure chronic ulcer of left calf with unspecified severity
CPT/HCPCS: 73720

== ENCOUNTER → 2023-01-01 | Outpatient (CLI) | payer MEDICAID ==
[~2023-01-01] MED LIST changes: -GADOTERATE 0.5 MMOL/ML (CLARISCAN) 15 ML VIAL IV ONE
== END ==
LOC: WOUNDCARE 08:29
PROVIDERS: ATTEND Family Medicine
DX: T81.31XA Disruption of external operation (surgical) wound, not elsewhere classified, initial encounter (principal); I96 Gangrene, not elsewhere classified; S61.212A Laceration without foreign body of right middle finger without damage to nail, initial encounter; D64.81 Anemia due to antineoplastic chemotherapy; A49.9 Bacterial infection, unspecified; F17.218 Nicotine dependence, cigarettes, with other nicotine-induced disorders; F10.20 Alcohol dependence, uncomplicated; Z92.21 Personal history of antineoplastic chemotherapy; Z92.25 Personal history of immunosuppression therapy
CPT/HCPCS: 11042; A6212; A6260; G0463

== ENCOUNTER → 2023-01-08 | Outpatient (CLI) | payer MEDICAID ==
[~2023-01-08] MED LIST changes: +SULF1TAB38 PO
== END ==
LOC: WOUNDCARE 10:48
PROVIDERS: ATTEND Family Medicine
DX: T81.31XA Disruption of external operation (surgical) wound, not elsewhere classified, initial encounter (principal); I96 Gangrene, not elsewhere classified; S61.212A Laceration without foreign body of right middle finger without damage to nail, initial encounter; D64.81 Anemia due to antineoplastic chemotherapy; A49.9 Bacterial infection, unspecified; F17.218 Nicotine dependence, cigarettes, with other nicotine-induced disorders; F10.20 Alcohol dependence, uncomplicated; Z92.21 Personal history of antineoplastic chemotherapy; Z92.25 Personal history of immunosuppression therapy
CPT/HCPCS: 11042; 87324; 87449; G0463

== ENCOUNTER → 2023-01-15 | Outpatient (CLI) | payer MEDICAID | LOC: WOUNDCARE 10:11 | PROVIDERS: ATTEND Family Medicine | DX: T81.31XA Disruption of external operation (surgical) wound, not elsewhere classified, initial encounter (principal); S61.212A Laceration without foreign body of right middle finger without damage to nail, initial encounter; D64.81 Anemia due to antineoplastic chemotherapy; Z92.21 Personal history of antineoplastic chemotherapy; Z92.25 Personal history of immunosuppression therapy; F17.218 Nicotine dependence, cigarettes, with other nicotine-induced disorders; F10.20 Alcohol dependence, uncomplicated; L92.8 Other granulomatous disorders of the skin and subcutaneous tissue | CPT/HCPCS: 11042; A6212; G0463 ==

== ENCOUNTER → 2023-01-29 | Outpatient (CLI) | payer MEDICAID | LOC: WOUNDCARE 10:45 | PROVIDERS: ATTEND Family Medicine | DX: T81.31XA Disruption of external operation (surgical) wound, not elsewhere classified, initial encounter (principal); S61.212A Laceration without foreign body of right middle finger without damage to nail, initial encounter; D64.81 Anemia due to antineoplastic chemotherapy; Z92.25 Personal history of immunosuppression therapy; Z92.21 Personal history of antineoplastic chemotherapy; F17.218 Nicotine dependence, cigarettes, with other nicotine-induced disorders; F10.20 Alcohol dependence, uncomplicated; L92.8 Other granulomatous disorders of the skin and subcutaneous tissue | CPT/HCPCS: A6212; G0463; 99213 ==